=== PATIENT | male | born 1970 | race Caucasian/White ===

== ENCOUNTER → 2021-03-08 11:09 | Outpatient (CLI) | payer BC, SELFPAY ==
--- NOTE | ~2021-03-08 | XR_ITS ---
XR foot RT min 3V DATE: 03/08/2021 11:27 INDICATION: Right foot pain, strange feeling of right great toe. TECHNIQUE: 4 views COMPARISON: None FINDINGS: There is joint space Consistent with osteoarthritis at the first metatarsophalangeal joint. Plantar and posterior calcaneal enthesopathy. No recent fracture or dislocation, periosteal reaction or bone destruction is evident. IMPRESSION: Plantar and posterior calcaneal enthesopathy Osteoarthritis at first metatarsophalangeal joint Reviewed, dictated and finalized at location A.
== END ==
PROVIDERS: PCP Family Medicine; Visit Provider Family Medicine
DX: M79.671 Pain in right foot (principal); M77.31 Calcaneal spur, right foot; M19.071 Primary osteoarthritis, right ankle and foot
CPT/HCPCS: 73630

== ENCOUNTER 2021-03-16 09:02 | Outpatient (CLI) | payer BC, SELFPAY ==
--- NOTE | 2021-03-16 12:00 | NEURO_ITS ---
Impression: # Complains of right foot pain around the base of 1st metatarsophalangeal joint. # Normal nerve conduction study. # Lateral planter latencies are normal and symmetrical bilaterally. # Normal needle/EMG exam. # Clinical correlation recommended. Nerve Conduction Studies Anti Sensory Summary Table Stim Site NR Peak (ms) P-T Amp (?V) Site1 Site2 Delta-P (ms) Dist (cm) Mac (m/s) Left Sup Fibular Anti Sensory (Ant Lat Mall) 14 cm 3.0 13.1 14 cm Ant Lat Mall 3.0 16.0 53 Right Sup Fibular Anti Sensory (Ant Lat Mall) 14 cm 3.1 9.8 14 cm Ant Lat Mall 3.1 16.0 52 Left Sural Anti Sensory (Lat Mall) Calf 3.7 7.8 Calf Lat Mall 3.7 16.0 43 Right Sural Anti Sensory (Lat Mall) Calf 3.6 29.8 Calf Lat Mall 3.6 16.0 44 Motor Summary Table Stim Site NR Onset (ms) O-P Amp (mV) Site1 Site2 Delta-0 (ms) Dist (cm) Mac (m/s) Left Lateral Plantar Motor (ADM) Med Mall 5.2 1.9 Right Lateral Plantar Motor (ADM) Med Mall 5.0 0.3 Left Peroneal Motor (Vastus Med) Ankle 4.5 1.6 Popit Ankle 9.2 38.0 41 Popit 13.7 1.6 Right Peroneal Motor (Vastus Med) Ankle 4.7 3.8 Popit Ankle 8.1 38.0 47 Popit 12.8 4.0 Left Tibial Motor (Abd Grey Brev) Ankle 5.0 5.0 Knee Ankle 10.5 44.0 42 Knee 15.5 2.7 Right Tibial Motor (Abd Grey Brev) Ankle 4.8 3.0 Knee Ankle 10.6 43.0 41 Knee 15.4 1.2 F Wave Studies NR F-Lat (ms) L-R F-Lat (ms) Left Peroneal (Mrkrs) (EDB) 54.46 0.54 Right Peroneal (Mrkrs) (EDB) 55.00 0.54 Left Tibial (Mrkrs) (Abd Hallucis) 55.44 0.89 Right Tibial (Mrkrs) (Abd Hallucis) 54.55 0.89 EMG Side Muscle Nerve Root Ins Act Fibs Amp Dur Recrt Comment Right AntTibialis Dp Br Fibular L4-5 Nml Nml Nml Nml Nml Right Gastroc Tibial S1-2 Nml Nml Nml Nml Nml Right Fibularis Long Sup Br Fibular L5-S1 Nml Nml Nml Nml Nml Right Flex Dig Long Tibial L5-S2 Nml Nml Nml Nml Nml Right Ext Dig Brev Dp Br Fibular L5, S1 Nml Nml Nml Nml Nml Left AntTibialis Dp Br Fibular L4-5 Nml Nml Nml Nml Nml Left Gastroc Tibial S1-2 Nml Nml Nml Nml Nml Left Fibularis Long Sup Br Fibular L5-S1 Nml Nml Nml Nml Nml Left Flex Dig Long Tibial L5-S2 Nml Nml Nml Nml Nml Left Ext Dig Brev Dp Br Fibular L5, S1 Nml Nml Nml Nml Nml Right AbdHallucis MedPlantar S1-2 Nml Nml Nml Nml Nml Left AbdHallucis MedPlantar S1-2 Nml Nml Nml Nml Nml MTDD
== END 2021-03-16 09:03 | disposition home or self-care (01) ==
PROVIDERS: PCP Family Medicine; Visit Provider Family Medicine
DX: G62.9 Polyneuropathy, unspecified (principal); Z82.49 Family history of ischemic heart disease and other diseases of the circulatory system
CPT/HCPCS: 95886; 95911

== ENCOUNTER 2022-03-29 14:16 | Emergency (ER) | payer BC, SELFPAY ==
--- NOTE | ~2022-03-29 | XR_ITS ---
XR hip LT min 2V DATE: 03/29/2022 14:46 INDICATION: Patient fell across the edge of this morning. Left hip pain. TECHNIQUE: AP and lateral views of left COMPARISON: None FINDINGS: Bilateral posterior spinal fusion at L5-S1. Bilateral iliolumbar ligament ossification. Symphysis and sacroiliac joints are intact. Mild left hip osteoarthritis. No fracture or dislocation, avascular necrosis or bone destruction of t he left IMPRESSION: Mild left hip osteophytes No left hip fracture or dislocation Status post posterior L5-S1 surgical fusion Reviewed, dictated and finalized at location A.
--- NOTE | ~2022-03-29 | XR_ITS ---
XR lumbar spine 2-3V DATE: 03/29/2022 14:46 INDICATION: Patient fell across the edge of a tub. Back pain, left hip pain TECHNIQUE: AP, lateral, coned lateral lumbosacral views COMPARISON: None FINDINGS: There are pedicle screws and rods bilaterally at 2 lower lumbosacral vertebra, likely L5-S1 posterior surgical fusion. No fracture or dislocation or bone destruction. No spondylolisthesis. Mild thoracolumbar dextroscoliosis. There is mild to moderate degenerative disc disease of the lumbar spine. The sacroiliac joints are intact. Bilateral iliolumbar ligament ossification IMPRESSION: Mild thoracolumbar dextroscoliosis Posterior fusion at approximately L5-S1 Mild to moderate degenerative disc disease No fracture or bone destruction Bilateral iliolumbar ligament ossification Reviewed, dictated and finalized at location A.
[2022-03-29 14:23] VITALS: BP 147/83; PULSE 92; RESP 16; TEMP 37.5; O2SAT 98
--- NOTE | 2022-03-29 14:26 | ED.BACK ---
HPI - Back Pain/Injury General Chief Complaint: Back Pain/Injury Stated Complaint: back and hip injury Time Seen by Provider: 03/29/22 14:26 Source: patient Mode of arrival: ambulatory Limitations: no limitations History of Present Illness HPI Narrative: 51 yo M presents with c/o R sided low back pain and L hip pain after slipping and falling in bathtub today. Denies hitting head. No LOC. Was able to get up on his own. States L hip hit against bathtub. Ambulatory with steady gait. hx of lumbar fusion. Would like x-rays to rule out fx. All systems reviewed and negative except as noted above. Related Data Allergies Allergy/AdvReac Type Severity Reaction Status Date / Time NO KNOWN DRUG ALLERGIES Allergy Y Uncoded 02/04/22 10:00 (Class Allergy) Review of Systems Review of Systems: CONSTITUTIONAL: Denies fever, chills, or sweats. EYES: Denies visual changes, redness, or discharge. ENT: Denies rhinorrhea, congestion, sore throat, or otalgia. CARDIOVASCULAR: Denies chest pain, palpitations, or edema. RESPIRATORY: Denies cough or dyspnea. GASTROINTESTINAL: Denies abdominal pain, nausea, vomiting, or diarrhea. GENITOURINARY: Denies dysuria or hematuria. SKIN: Denies rash or itching. MUSCULOSKELETAL: Reports right sided low back pain and L hip pain. NEUROLOGIC: Denies headache, numbness, or weakness. PSYCHIATRIC: Denies anxiety or depression. All other systems reviewed are negative, except as documented in HPI. [facility] Past Medical History Medical History Abnormal fasting glucose Acute bronchitis Acute non-recurrent maxillary sinusitis Acute pain of left shoulder BMI 38.0-38.9,adult BMI 40.0-44.9, adult Body mass index (bmi) 39.0-39.9, adult (07/02/19) Chronic cough Chronic low back pain with right-sided sciatica Chronic right-sided low back pain Cough COVID-19 (08/23/21) tested positive on 08/24/2021 Diabetic peripheral neuropathy Eczema Encounter for prostate cancer screening Family history of premature CAD Male erectile dysfunction, unspecified Right foot pain Right lateral epicondylitis Seasonal allergic rhinitis Type 2 diabetes mellitus without complication, without long-term current use of insulin Fasting glucose 131 with hemoglobin A1c 6.2 on 10/27/2021 Family History Family History Father Diabetes mellitus Acute myocardial infarction, Onset Age: 72 Mother Patient's mother is in good health Sibling Patient's sister is in good health Grandparent Acute myocardial infarction, Onset Age: 82 Social History Social History Smoking status: Never smoker Alcohol intake: never Substance use: never Substance use type: does not use Comments At time of signature, agree with nursing past medical, surgical, social and family history. There is no relevant family history pertinent to the presenting complaint. Exam Narrative: GENERAL: This is a well-nourished, well-developed patient, in no apparent distress. HEAD: normocephalic, atraumatic. EYES: PERRL. Sclera clear/white. Vision is grossly intact. EARS: External ears normal NOSE: External nose normal NECK: Neck supple, non-tender without lymphadenopathy, masses or thyromegaly. CARDIOVASCULAR: Regular rate and rhythm without murmurs, gallops, or rubs. RESPIRATORY: Clear to auscultation. Breath sounds equal bilaterally. No wheezes, rales, or rhonchi. SKIN: warm, Dry, intact with no suspicious lesions or rash, good texture and turgor. NEURO: awake, alert, and oriented to person, place and time. There were no obvious focal neurologic abnormalities. EXTREMITIES: No joint tenderness, effusion, or edema noted. Tenderness to lateral aspect L hip. small bruise noted. no swelling. ROM intact. BACK: R sided low back tenderness. no swelling or bruising. scar noted to midline f
== END 2022-03-29 15:15 | disposition home or self-care (01) ==
PROVIDERS: Emergency Provider Nurse Practitioner Family; PCP Family Medicine
DX: S70.02XA Contusion of left hip, initial encounter (principal); W18.2XXA Fall in (into) shower or empty bathtub, initial encounter; S39.012A Strain of muscle, fascia and tendon of lower back, initial encounter; E11.42 Type 2 diabetes mellitus with diabetic polyneuropathy; Z79.4 Long term (current) use of insulin; Z86.16 Personal history of COVID-19
CPT/HCPCS: 72100; 73502; 99214; G0463

== ENCOUNTER 2022-06-03 15:21 | Outpatient (CLI) | payer BC, SELFPAY ==
--- NOTE | 2022-06-03 15:28 | ECG_ITS ---
Measurements Intervals [place] Rate: 98 P: 45 TN: 144 QRS: 35 QRSD: 88 T: 69 QT: 332 QTc: 426 Interpretive Statements SINUS RHYTHM BASELINE WANDER- I, II, III NORMAL ECG COMPARED TO ECG 02/04/2019 09:19:56 NO SIGNIFICANT CHANGES Electronically Signed On 06-03-2022 16:27:00 CDT by Manny Mix D.O.
== END 2022-06-03 15:22 | disposition home or self-care (01) ==
LOC: ANHLAB 15:24
PROVIDERS: PCP Family Medicine; Visit Provider Family Medicine
DX: I10 Essential (primary) hypertension (principal)
CPT/HCPCS: 93005

== ENCOUNTER 2024-01-29 01:00 | Day surgery (SDC) | payer BC, SELFPAY ==
[2024-01-22 09:15] VITALS: BMI 33.8
[2024-01-29 10:18] VITALS: BP 108/77; PULSE 112; RESP 18; TEMP 36.4; O2SAT 97
[2024-01-29] MEDS: LACTATED RINGERS 1,000 ML 150 ML IV CONT (10:31)
--- NOTE | 2024-01-29 11:18 | WPDANESEPPF ---
Anes - Initial Pre Proc Eval Procedure: Operation Date: 01/29/24 11:30 Proposed Procedures p Screening Colonoscopy - Alfonso Escobar MD Date/Time: 01/29/24 11:18 Surgeon: Alfonso Escobar MD Pre Op Diagnosis: neoplasm screening Patient Data Age: 53 Gender: M Height: 1.78 m Weight: 105.5 kg Last Vital Signs Temp 36.4 C L 01/29/24 10:18 Pulse 112 H 01/29/24 10:18 Resp 18 01/29/24 10:18 BP 108/77 01/29/24 10:18 Pulse Ox 97 01/29/24 10:18 O2 Del Method Room Air 01/29/24 10:18 Allergies Allergy/AdvReac Type Severity Reaction Status Date / Time NO KNOWN DRUG ALLERGIES Allergy Y Uncoded 01/29/24 10:16 (Class Allergy) Home Medications Medication Instructions Recorded Confirmed Type naproxen 500 mg tablet (Naprosyn) 500 mg PO BID PRN pain #60 tabs 05/17/23 01/22/24 Rx cyclobenzaprine 10 mg tablet 10 mg PO TID PRN muscle spasm #90 05/22/23 01/22/24 Rx tabs fluticasone propionate 50 1 spray intranasal Q12H #16 grams 06/26/23 01/22/24 Rx mcg/actuation nasal spray,suspension (Flonase Allergy Relief) gabapentin 300 mg capsule 300 mg PO TID #90 caps 07/19/23 01/22/24 Rx amlodipine 5 mg tablet 5 mg PO DAILY #30 tabs 09/27/23 01/22/24 Rx irbesartan 300 mg tablet (Avapro) 300 mg PO DAILY #30 tabs 10/30/23 01/22/24 Rx hydrocodone 7.5 mg-acetaminophen 1 tablet PO Q6H PRN pain #28 tabs 11/16/23 01/22/24 Rx 325 mg tablet semaglutide 1 mg/dose (4 mg/3 mL) 1 mg (0.75 mL) subcut WEEKLY #3 mL 11/16/23 01/22/24 Rx subcutaneous pen injector (Ozempic) Patient hx anesthesia problems: none Family hx anesthesia problems: none Results Review: All pre-operative results and documents have been reviewed as part of the pre-operative evaluation. [facility] Past Medical History Medical History Abnormal fasting glucose Acute bronchitis Acute non-recurrent maxillary sinusitis Acute pain of left shoulder Adult BMI 34.0-34.9 kg/sq m BMI 35.0-35.9,adult BMI 37.0-37.9, adult BMI 38.0-38.9,adult BMI 40.0-44.9, adult Body mass index (bmi) 39.0-39.9, adult (07/02/19) Chronic cough Chronic low back pain with right-sided sciatica Chronic neck pain resolved after 2 level disc replacement C3-C4, C4-C5 June,. Chronic right-sided low back pain Colon cancer screening Cough COVID-19 (08/23/21) tested positive on 08/24/2021 Diabetic peripheral neuropathy Diarrhea Eczema Encounter for prostate cancer screening PSA 0.4 on 05/07/2022. Family history of premature CAD Idiopathic chronic gout Male erectile dysfunction, unspecified Obesity (BMI 30-39.9) Protein in urine (05/07/22) 1+ protein on urinalysis 05/07/2022.Urinalysis normal on 11/12/2022. Right foot pain Right lateral epicondylitis Seasonal allergic rhinitis Tinea pedis Type 2 diabetes mellitus without complication, without long-term current use of insulin Fasting glucose 131 with hemoglobin A1c 6.2 on 10/27/2021. glucose 109 with hemoglobin A1c 6.1 on 05/07/2022. Microalbumin ratio of 8. Glucose 116 with hemoglobin A1c 6.7 With microalbumin ratio of 8 on 11/12/2022. Vitamin D deficiency, unspecified (06/03/22) Level low at 26 with goal greater than 30 on 06/03/2022. Family History Family History Father Diabetes mellitus Acute myocardial infarction, Onset Age: 72 Mother Patient's mother is in good health Sibling Patient's sister is in good health Grandparent Acute myocardial infarction, Onset Age: 82 Social History Social History Smoking status: Never smoker Alcohol intake: never Substance use: never Substance use type: does not use Lack of Transportation: No Current Housing: Decline to Answer Concerned About Future Housing: Decline to Answer Difficulty Paying Gas/Electric Bills: Decl
--- NOTE | 2024-01-29 11:28 | PM.HPGS ---
History of Present Illness History of Present Illness Consent: Risks, benefits, and alternatives have been discussed and questions answered. Patient agrees to proceed with procedure. Chief complaint: neoplasm screening Narrative: Sami Niño is a 53 year old male here for screening colonoscopy Review of Systems Review of Systems: All systems reviewed & are unremarkable except as noted in HPI and below PMFSH Past Medical History Medical History Abnormal fasting glucose Acute bronchitis Acute non-recurrent maxillary sinusitis Acute pain of left shoulder Adult BMI 34.0-34.9 kg/sq m BMI 35.0-35.9,adult BMI 37.0-37.9, adult BMI 38.0-38.9,adult BMI 40.0-44.9, adult Body mass index (bmi) 39.0-39.9, adult (07/02/19) Chronic cough Chronic low back pain with right-sided sciatica Chronic neck pain resolved after 2 level disc replacement C3-C4, C4-C5 June,. Chronic right-sided low back pain Colon cancer screening Cough COVID-19 (08/23/21) tested positive on 08/24/2021 Diabetic peripheral neuropathy Diarrhea Eczema Encounter for prostate cancer screening PSA 0.4 on 05/07/2022. Family history of premature CAD Idiopathic chronic gout Male erectile dysfunction, unspecified Obesity (BMI 30-39.9) Protein in urine (05/07/22) 1+ protein on urinalysis 05/07/2022.Urinalysis normal on 11/12/2022. Right foot pain Right lateral epicondylitis Seasonal allergic rhinitis Tinea pedis Type 2 diabetes mellitus without complication, without long-term current use of insulin Fasting glucose 131 with hemoglobin A1c 6.2 on 10/27/2021. glucose 109 with hemoglobin A1c 6.1 on 05/07/2022. Microalbumin ratio of 8. Glucose 116 with hemoglobin A1c 6.7 With microalbumin ratio of 8 on 11/12/2022. Vitamin D deficiency, unspecified (06/03/22) Level low at 26 with goal greater than 30 on 06/03/2022. Family History Family History Father Diabetes mellitus Acute myocardial infarction, Onset Age: 72 Mother Patient's mother is in good health Sibling Patient's sister is in good health Grandparent Acute myocardial infarction, Onset Age: 82 Social History Social History Smoking status: Never smoker Alcohol intake: never Substance use: never Substance use type: does not use Lack of Transportation: No Current Housing: Decline to Answer Concerned About Future Housing: Decline to Answer Difficulty Paying Gas/Electric Bills: Decline to Answer Difficulty Paying for Meds: Decline to Answer Currently Unemployed: Decline to Answer Education: Decline to Answer Difficulty w/ Childcare or Family Care: Decline to Answer Living arrangements: with family Spiritual care concerns: No Meds Home Medications and Allergies Home Medications Medication Instructions Recorded Confirmed Type naproxen 500 mg tablet (Naprosyn) 500 mg PO BID PRN pain #60 tabs 05/17/23 01/22/24 Rx cyclobenzaprine 10 mg tablet 10 mg PO TID PRN muscle spasm #90 05/22/23 01/22/24 Rx tabs fluticasone propionate 50 1 spray intranasal Q12H #16 grams 06/26/23 01/22/24 Rx mcg/actuation nasal spray,suspension (Flonase Allergy Relief) gabapentin 300 mg capsule 300 mg PO TID #90 caps 07/19/23 01/22/24 Rx amlodipine 5 mg tablet 5 mg PO DAILY #30 tabs 09/27/23 01/22/24 Rx irbesartan 300 mg tablet (Avapro) 300 mg PO DAILY #30 tabs 10/30/23 01/22/24 Rx hydrocodone 7.5 mg-acetaminophen 1 tablet PO Q6H PRN pain #28 tabs 11/16/23 01/22/24 Rx 325 mg tablet semaglutide 1 mg/dose (4 mg/3 mL) 1 mg (0.75 mL) subcut WEEKLY #3 mL 11/16/23 01/22/24 Rx subcutaneous pen injector (Ozempic) Allergies Allergy/AdvReac Type Severity Reaction Status Date / Time NO KNOWN DRUG ALLERGIES Allergy Y Uncoded 01/29/24 10:16 (Class Allergy) Vital Signs Vital Si
[2024-01-29 11:45] VITALS: BP 90/61; PULSE 95; RESP 18; O2SAT 95
[2024-01-29 11:55] VITALS: BP 97/66; PULSE 86; RESP 33; O2SAT 95
[2024-01-29 12:05] VITALS: BP 102/68; PULSE 94; RESP 20; O2SAT 97
== END 2024-01-29 12:10 | disposition home or self-care (01) ==
PROVIDERS: PCP Family Medicine; Visit Provider Internal Medicine Gastroenterology
PROC: 0DJD8ZZ Inspection of Lower Intestinal Tract, Via Natural or Artificial Opening Endoscopic (ICD-10-PCS; CPT 45378; principal; 2024-01-29 11:30)
DX: Z12.11 Encounter for screening for malignant neoplasm of colon (principal); K64.8 Other hemorrhoids; D12.2 Benign neoplasm of ascending colon; D12.4 Benign neoplasm of descending colon; E11.9 Type 2 diabetes mellitus without complications; E55.9 Vitamin D deficiency, unspecified; G89.29 Other chronic pain; M54.41 Lumbago with sciatica, right side; M54.2 Cervicalgia; R05.3 Chronic cough; N52.9 Male erectile dysfunction, unspecified; J30.2 Other seasonal allergic rhinitis; E66.9 Obesity, unspecified; Z68.33 Body mass index [BMI] 33.0-33.9, adult; Z79.1 Long term (current) use of non-steroidal anti-inflammatories (NSAID); Z79.85 Long-term (current) use of injectable non-insulin antidiabetic drugs; Z79.891 Long term (current) use of opiate analgesic; Z98.890 Other specified postprocedural states; Z98.1 Arthrodesis status; Z82.49 Family history of ischemic heart disease and other diseases of the circulatory system
CPT/HCPCS: 45385; 45380; 88305; J2704; J7120